=== PATIENT | male | born 1990 | race American Indian/Alaskan Native ===

== ENCOUNTER 2017-07-23 09:57 | Emergency (ER) | payer SELFPAY ==
[2017-07-23 10:12] VITALS: BP 107/79; PULSE 70; TEMP 97; O2SAT 97
[2017-07-23 10:13] VITALS: BMI 25.0
--- NOTE | 2017-07-23 11:02 | ED PDOC ---
HPI: CCC, URI, Sore Throat Time Seen by Provider: 07/23/17 10:33 Chief Complaint (Nursing): ENT Problem Chief Complaint (Provider): 4-5 days of sore throat History Per: Patient History/Exam Limitations: no limitations Onset/Duration Of Symptoms: Days Current Symptoms Are (Timing): Still Present Location Of Pain: Ear(s) Additional Complaint(s): 27 yo male with no medical problems presents with 4-5 days of sore throat. Pt states he gets strep every summer. Pt denies fever/chills. PT also reports unprotected sex 1 week ago and was concerned about STI. Past Medical History Reviewed: Historical Data, Nursing Documentation, Vital Signs Vital Signs: Last Vital Signs Temp 97 F L 07/23/17 10:11 Pulse 70 07/23/17 10:11 Resp BP 107/79 07/23/17 10:11 Pulse Ox 97 07/23/17 10:11 - Medical History PMH: Asthma - Surgical History Surgical History: No Surg Hx - Family History Family History: States: No Known Family Hx - Living Arrangements Living Arrangements: With Family - Social History Current smoker - smoking cessation education provided: No - Home Medications Home Medications: Ambulatory Orders Medication Instructions Recorded Amoxicillin 875 mg PO BID #20 tab 07/23/17 - Allergies Allergies/Adverse Reactions: Allergies Allergy/AdvReac Type Severity Reaction Status Date / Time shellfish derived Allergy URTICARIA Verified 07/23/17 10:14 Review of Systems ROS Statement: Except As Marked, All Systems Reviewed And Found Negative Constitutional: Negative for: Fever, Chills ENT: Positive for: Throat Pain. Negative for: Throat Swelling Physical Exam - Reviewed Nursing Documentation Reviewed: Yes Vital Signs Reviewed: Yes - Physical Exam Appears: Positive for: Well, Non-toxic, No Acute Distress Head Exam: Positive for: ATRAUMATIC, NORMAL INSPECTION, NORMOCEPHALIC Skin: Positive for: Normal Color, Warm, DRY Eye Exam: Positive for: Normal appearance ENT: Positive for: Normal ENT Inspection, Pharynx Is (Erythema ) Neck: Positive for: Normal, Painless ROM Cardiovascular/Chest: Positive for: Regular Rate, Rhythm Respiratory: Positive for: Normal Breath Sounds. Negative for: Accessory Muscle Use, Respiratory Distress Back: Positive for: Normal Inspection Extremity: Positive for: Normal ROM Neurologic/Psych: Positive for: Alert, Oriented - ECG O2 Sat by Pulse Oximetry: 97 Medical Decision Making Medical Decision Making: Urine culture and GC/chlamydia sent. Disposition - Clinical Impression Clinical Impression: Pharyngitis - Patient ED Disposition Is Patient to be Admitted: No Counseled Patient/Family Regarding: Diagnosis, Need For Followup, Rx Given - Disposition Disposition: Routine/Home Disposition Time: 11:04 Condition: STABLE Prescriptions: Amoxicillin 875 mg PO BID #20 tab Instructions: Sore Throat in Adults
== END 2017-07-23 11:27 | disposition home or self-care (01) ==
LOC: H.ER 09:57
DX: J02.9 Acute pharyngitis, unspecified (principal)